=== PATIENT | female | born 1945 | race Caucasian/White ===

== ENCOUNTER 2017-03-09 13:36 | Emergency (ER) | payer MEDICARE, OTHER ==
[~2017-03-09 13:36] MED LIST: CLOP75 PO; FLUO-1 PO; LEVO.025 PO; LISI-363 PO; LYRI50CA2 PO; MEVA40TA6 PO; SERO100T PO
[2017-03-09 13:41] VITALS: BP 141/77; PULSE 99; RESP 20; TEMP 98; O2SAT 94
[2017-03-09] MEDS ORDERED: SERO100T PO (14:44)
[2017-03-09] MEDS ORDERED: VENTAER INH (14:44)
[2017-03-09] MEDS ORDERED: PLAV75TA29 PO (14:44)
[2017-03-09] MEDS ORDERED: FLUO20CA12 PO (14:44)
[2017-03-09] MEDS ORDERED: LOVA40TA PO (14:44)
[2017-03-09] MEDS ORDERED: GABA300C5 PO (14:44)
[2017-03-09] MEDS ORDERED: GLYC1AER INH (14:44)
[2017-03-09] MEDS ORDERED: LISI40TA PO (14:44)
--- NOTE | 2017-03-09 14:53 | PD ---
HPI Chief Complaint: Abdominal Pain Time Seen by Provider: 14:32 Travel History International Travel<30 days: No Contact w/Intl Traveler<30days: No Traveled to known affect area: No History of Present Illness HPI This 71-year-old female is complaining of nausea and lower abdominal pain. She' s been sick for about 2 days. She has a little bit nauseated 2 days ago. Yesterday she had explosive diarrhea throughout the day. She is having lower abdominal pain today and severe nausea. She has had a hysterectomy in the past. No other abdominal surgery. She is taken some Pepto-Bismol without relief. She has not had diarrhea today. She had a colonoscopy done a couple years ago she has had some polyps otherwise negative. The pain she is having is lower abdominal pain. It is crampy in nature. It is moderate in severity PFSH Past Medical History Arthritis: No Asthma: Yes Autoimmune Disease: No Blood Disorders: No Anxiety: Yes Depression: Yes Heart Rhythm Problems: No Cancer: No Cardiovascular Problems: Yes High Cholesterol: Yes Chemotherapy: No Chest Pain: No Congestive Heart Failure: No COPD: Yes Cerebrovascular Accident: Yes Diabetes: No Diminished Hearing: No Endocrine: No Gastrointestinal Disorders: Yes GERD: Yes Glaucoma: No Genitourinary: Yes Headaches: No Hepatitis: No Hiatal Hernia: Yes Hypertension: Yes Kidney Stones: No Musculoskeletal: No Neurologic: Yes (Temporal arteritis ) Psychiatric: Yes Reproductive: No Respiratory: Yes (Bronchitis ) Myocardial Infarction: No Radiation Therapy: No Renal Failure: No Seizures: No Shingles: Yes (w/ herpetic neuralgia ) Sickle Cell Disease: No Sleep Apnea: No Thyroid Disease: Yes Ulcer: No Tetanus Vaccination: Unknown Influenza Vaccination: Yes PNEUMOCCOCAL Vaccine (Year): 1 ?: Not Menopausal: Yes Past Surgical History Abdominal Surgery: No AICD: No Cardiac Surgery: No Cholecystectomy: Yes Ear Surgery: No Endocrine Surgery: No Eye Surgery: No Genitourinary Surgery: No Gynecologic Surgery: Yes (HYSTERECTOMY) Hysterectomy: Yes Oral Surgery: No Pacemaker: No Thoracic Surgery: No Other Surgery: Yes (Sinus X's 3) Social History Alcohol Use: No Tobacco Use: No Substance Use: No Allergies-Medications (Allergen,Severity, Reaction): Coded Allergies: Augmentin (Verified Allergy, Severe, 03/09/17) Phenobarbital (Verified Allergy, Severe, eyes swell, 03/09/17) Reported Meds & Prescriptions Reported Meds & Active Scripts Active Zofran Odt (Ondansetron Odt) 4 Mg Tab 4 Mg SL Q6HR PRN Reported Bevespi Aerosphere 9-4.8 Mcg/Act (Glycopyrrolate-Formoterol Fuma) 1 Aer Aer 2 Puff INH DIRECTED Ventolin Hfa 18 GM Inh (Albuterol Sulfate) 90 Mcg/Act Aer 2 Puff INH Q6H PRN Lisinopril 40 Mg Tab 40 Mg PO BID Seroquel (Quetiapine Fumarate) 100 Mg Tab 100 Mg PO HS Plavix (Clopidogrel Bisulfate) 75 Mg Tab 75 Mg PO DAILY Fluoxetine (Fluoxetine HCl) 20 Mg Capsule 20 Mg PO DAILY Gabapentin 300 Mg Cap 300 Mg PO DIRECTED Lovastatin 40 Mg Tab 40 Mg PO DAILY Review of Systems General / Constitutional: No: Fever, Chills Eyes: No: Diploplia HENT: No: Headaches, Vertigo Cardiovascular: No: Chest Pain or Discomfort, Palpitations Respiratory: No: Cough, Shortness of Breath Gastrointestinal: Positive: Nausea, Diarrhea, Abdominal Pain Genitourinary: No: Urgency, Frequency Musculoskeletal: No: Myalgias, Arthralgias Skin: No Rash, No Itching Neurologic: No: Weakness, Dizziness Physical Exam Narrative GENERAL: Well-developed female SKIN: Focused skin assessment warm/dry. HEAD: Atraumatic. Normocephalic. EYES: Pupils equal and round. No scleral icterus. No injection or drainage. ENT: No nasal bleeding or discharge. Mucous membranes pink and moist. NECK: Trachea midline. No JVD. CARDIOVASCULAR: Regular rate and rhythm. No murmur appreciated. RESPIRATORY: No accessory muscle use. Clear to auscultation. Breath sounds equal bilaterally. GASTROINTESTINAL: Abdomen soft, there is lower abdominal tenderness which seems greater on the right side, nondistended. Hepatic and splenic margins not palpable. MUSCULOSKELETAL: No obvious deformities. No clubbing. No cyanosis. No edema. NEUROLOGICAL: Awake and alert. No obvious cranial nerve deficits. Motor grossly within normal limits. Normal speech. PSYCHIATRIC: Appropriate mood and affect; insight and judgment normal. Data Data Last Documented VS Vital Signs Date Time Temp Pulse Resp B/P Pulse Ox O2 Delivery O2 Flow Rate FiO2 03/09/17 13:41 98.0 99 20 141/77 94 Orders Complete Blood Count With Diff (03/09/17 14:48) Comprehensive Metabolic Panel (03/09/17 14:48) Urinalysis - C+S If Indicated (03/09/17 14:48) Ct Abd/Pel W Iv Contrast(Rout) (03/09/17 14:48) Sodium Chlor 0.9% 1000 Ml Inj (Ns 1000 M (03/09/17 15:00) Ondansetron Inj (Zofran Inj) (03/09/17 15:00) Labs Laboratory Tests Test 03/09/17 03/09/17 15:00 15:08 Urine Color YELLOW Urine Turbidity CLEAR Urine pH 5.5 Urine Specific [place] 1.025 Urine Protein TRACE mg/dL Urine Glucose (UA) NEG mg/dL Urine Ketones TRACE mg/dL Urine Occult Blood NEG Urine Nitrite NEG Urine Bilirubin NEG Urine Leukocyte Esterase NEG Urine WBC 3-5 /hpf Urine Squamous Epithelial 0-5 /hpf Cells Urine Renal Epithelial Cells 0-5 /hpf Urine Amorphous Sediment FEW Urine Bacteria RARE /hpf Urine Hyaline Casts 20-24 /lpf Urine Mucus MOD /lpf Microscopic Urinalysis Comment CULT NOT INDICATED White Blood Count 8.6 TH/MM3 Red Blood Count 4.89 MIL/MM3 Hemoglobin 14.0 GM/DL Hematocrit 42.7 % Mean Corpuscular Volume 87.2 FL Mean Corpuscular Hemoglobin 28.7 PG Mean Corpuscular Hemoglobin 32.9 % Concent Red Cell Distribution Width 13.0 % Platelet Count 252 TH/MM3 Mean Platelet Volume 7.8 FL Neutrophils (%) (Auto) 81.9 % Lymphocytes (%) (Auto) 8.2 % Monocytes (%) (Auto) 8.3 % Eosinophils (%) (Auto) 1.4 % Basophils (%) (Auto) 0.2 % Neutrophils # (Auto) 7.1 TH/MM3 Lymphocytes # (Auto) 0.7 TH/MM3 Monocytes # (Auto) 0.7 TH/MM3 Eosinophils # (Auto) 0.1 TH/MM3 Basophils # (Auto) 0.0 TH/MM3 CBC Comment AUTO DIFF Sodium Level 139 MEQ/L Potassium Level 3.5 MEQ/L Chloride Level 103 MEQ/L Carbon Dioxide Level 25.9 MEQ/L Anion Gap 10 MEQ/L Blood Urea Nitrogen 20 MG/DL Creatinine 1.50 MG/DL Estimat Glomerular Filtration 34 ML/MIN Rate Random Glucose 109 MG/DL Calcium Level 8.3 MG/DL Total Bilirubin 1.0 MG/DL Aspartate Amino Transf 31 U/L (AST/SGOT) Alanine Aminotransferase 22 U/L (ALT/SGPT) Alkaline Phosphatase 68 U/L Total Protein 7.3 GM/DL Albumin 4.1 GM/DL [facility] Medical Decision Making Medical Screen Exam Complete: Yes Emergency Medical Condition: Yes Medical Record Reviewed: Yes Differential Diagnosis Differential includes enteritis, gastroenteritis, diverticulitis, appendicitis Narrative Course Hemoglobin is 14. White count is 8.6. Urine is 20 with creatinine of 1.5. A CT scan has been ordered to assess for possible diverticulitis or other etiology. She has been given some fluids and Zofran. Her nausea has responded very well to Zofran. CT pending at the time of my departure and will be checked by oncoming physician Diagnosis Primary Impression: Enteritis Scripts Ondansetron Odt (Zofran Odt)4 Mg Tab4 Mg SL Q6HR PRN (Nausea/Vomiting) #10 TAB Ref 0 Prov:Narayan Foster MD 03/09/17 Narayan Foster MD Mar 09, 2017 14:53
[2017-03-09] MEDS ORDERED: SODIUM CHLOR 0.9% 1000 ML INJ 1,000 ML IV ONE (15:00)
[2017-03-09] MEDS ORDERED: ONDANSETRON HCL 4 MG/2 ML VIAL IV PUSH ONE ×2 (15:00→17:00)
[2017-03-09 15:26] LABS: BLOOD, URINE NEG (NEG); GLUCOSE,URINE NEG (NEG); KETONE, URINE TRACE mg/dL (NEG); NITRITE,URINE NEG (NEG); PH, URINE 5.5 (5.0-8.5)
[2017-03-09 15:36] LABS: CHLORIDE 103 MEQ/L (98-107); POTASSIUM 3.5 MEQ/L (3.5-5.1); SODIUM (NA) 139 MEQ/L (136-145)
[2017-03-09 15:37] LABS: AUTOMATED NEUTROPHIL # 7.1 TH/MM3 (1.8-7.7); BASOPHIL % 0.2 % (0.0-2.0); EOSINOPHIL # 0.1 TH/MM3 (0-0.4); EOSINOPHIL % 1.4 % (0.0-4.0); HEMATOCRIT 42.7 % (35.0-46.0); LYMPH % 8.2 % (9.0-44.0); LYMPHOCYTE # 0.7 TH/MM3 (1.0-4.8); MEAN CELL VOLUME 87.2 FL (80.0-100.0); MEAN CORPUSCULAR HEMOGLOBIN 28.7 PG (27.0-34.0); MEAN CORPUSCULAR HGB CONC 32.9 % (32.0-36.0); MONO % 8.3 % (0.0-8.0); NEUT % 81.9 % (16.0-70.0); PLATELET COUNT 252 TH/MM3 (150-450); RED BLOOD COUNT 4.89 MIL/MM3 (4.00-5.30); WHITE BLOOD COUNT 8.6 TH/MM3 (4.0-11.0)
[2017-03-09 15:41] LABS: ANION GAP 10 MEQ/L (5-15); BICARBONATE 25.9 MEQ/L (21.0-32.0); BLOOD UREA NITROGEN 20 MG/DL (7-18)
[2017-03-09 15:41] LABS: URINE COLOR YELLOW (YELLW/STRAW)
[2017-03-09 15:42] LABS: MUCUS URINE MOD /lpf (OCC)
[2017-03-09 15:43] LABS: RENAL EPITHELIAL CELLS 0-5 /hpf; SQUAMOUS EPITHELIAL CELL URINE 0-5 /hpf (0-5)
[2017-03-09 15:44] LABS: ALT (GPT) 22 U/L (10-53); AST (GOT) 31 U/L (15-37); GLOMERULAR FILTRATION RATE 34 ML/MIN (>89)
[2017-03-09 15:44] LABS: BACTERIA, URINE RARE /hpf; COMMENT (UR) CULT NOT INDICATED; CULTURE IF INDICATED CULT NOT INDICATED
[2017-03-09 15:45] LABS: HEMO FLAGS AUTO DIFF
[2017-03-09 15:47] LABS: ALKALINE PHOSPHATASE 68 U/L (45-117)
[2017-03-09] MEDS ORDERED: ZOFR4TAB3 SL (15:58)
[2017-03-09] MEDS ORDERED: IODIXANOL 320 MG/ML 10 ML VIAL (for Rad CT) IV ONE (16:05)
--- NOTE | 2017-03-09 16:22 | RADRPT ---
EXAM DATE/TIME: 03/09/2017 15:51 [place] COMPARISON: No previous studies available for comparison. INDICATIONS : Abdominal pain and diarrhea. IV CONTRAST: 50 cc Visipaque (iodixanol) IV ORAL CONTRAST: No oral contrast ingested. RADIATION DOSE: 10.13 CTDIvol (mGy) MEDICAL HISTORY : Hernia, hiatal. Chronic obstructive pulmonary disease. Hypertension. SURGICAL HISTORY : Cholecystectomy. Hysterectomy. ENCOUNTER: Initial ACUITY: 3 days PAIN SCALE: 2/10 LOCATION: abdomen TECHNIQUE: Volumetric scanning of the abdomen and pelvis was performed. Using automated exposure control and ad justment of the mA and/or kV according to patient size, radiation dose was kept as low as reasonably achievable to obtain optimal diagnostic quality images. DICOM format image data is available electro nically for review and comparison. FINDINGS: LOWER LUNGS: The visualized lower lungs are clear. LIVER: Homogeneous density without lesion. There is no dilation of the biliary tree. No calcified gallston es. SPLEEN: Normal size without lesion. 3 small soft tissue nodules in the left upper abdomen likely splenules PANCREAS: 1 cm hypodensity within the neck of the pancreas and 5 mm nodule superior to the pancreas could be sm all pseudocysts. KIDNEYS: Normal in size and shape. There is no mass, stone or hydronephrosis. ADRENAL GLANDS: Within normal limits. VASCULAR: There is no aortic aneurysm. BOWEL/MESENTERY: The stomach, small bowel, and colon demonstrate no acute abnormality. There is no free intraperitone al air or fluid. ABDOMINAL WALL: Within normal limits. RETROPERITONEUM: There is no lymphadenopathy. BLADDER: No wall thickening or mass. REPRODUCTIVE: Within normal limits. INGUINAL: There is no lymphadenopathy or hernia. MUSCULOSKELETAL: Within normal limits for patient age. CONCLUSION: Normal examination. 3 small splenule is in the left upper abdomen. 1 cm hypodensity within the neck of the pancreas and 5 mm nodule superior to the pancreas could be small pseudocysts. Followup CT scan in one year is recommended with contrast. Jesús Ferguson MD on March 09, 2017 at 16:18 Board Certified Radiologist. This report was verified electronically.
[2017-03-09 16:25] LABS: PLATELET ESTIMATE SMEAR NORMAL (NORMAL); PLATELET MORPHOLOGY NORMAL (NORMAL); SCAN/DIFF AUTO DIFF CONFIRMED
--- NOTE | 2017-03-09 16:55 | PD ---
Physical Exam Date Seen by Provider: Mar 09, 2017 Narrative Care was assumed from Dr. Goodman at [address] of the abdomen and pelvis. The patient presented with vomiting and diarrhea. The patient is much improved following Zofran. Data Data Last Documented VS Vital Signs Date Time Temp Pulse Resp B/P Pulse Ox O2 Delivery O2 Flow Rate FiO2 03/09/17 13:41 98.0 99 20 141/77 94 Orders Complete Blood Count With Diff (03/09/17 14:48) Comprehensive Metabolic Panel (03/09/17 14:48) Urinalysis - C+S If Indicated (03/09/17 14:48) Ct Abd/Pel W Iv Contrast(Rout) (03/09/17 14:48) Sodium Chlor 0.9% 1000 Ml Inj (Ns 1000 M (03/09/17 15:00) Ondansetron Inj (Zofran Inj) (03/09/17 15:00) Iodixanol 320 Inj (Rad Ct) (Visipaque 32 (03/09/17 16:05) Labs Laboratory Tests Test 03/09/17 03/09/17 15:00 15:08 Urine Color YELLOW Urine Turbidity CLEAR Urine pH 5.5 Urine Specific [place] 1.025 Urine Protein TRACE mg/dL Urine Glucose (UA) NEG mg/dL Urine Ketones TRACE mg/dL Urine Occult Blood NEG Urine Nitrite NEG Urine Bilirubin NEG Urine Leukocyte Esterase NEG Urine WBC 3-5 /hpf Urine Squamous Epithelial 0-5 /hpf Cells Urine Renal Epithelial Cells 0-5 /hpf Urine Amorphous Sediment FEW Urine Bacteria RARE /hpf Urine Hyaline Casts 20-24 /lpf Urine Mucus MOD /lpf Microscopic Urinalysis Comment CULT NOT INDICATED White Blood Count 8.6 TH/MM3 Red Blood Count 4.89 MIL/MM3 Hemoglobin 14.0 GM/DL Hematocrit 42.7 % Mean Corpuscular Volume 87.2 FL Mean Corpuscular Hemoglobin 28.7 PG Mean Corpuscular Hemoglobin 32.9 % Concent Red Cell Distribution Width 13.0 % Platelet Count 252 TH/MM3 Mean Platelet Volume 7.8 FL Neutrophils (%) (Auto) 81.9 % Lymphocytes (%) (Auto) 8.2 % Monocytes (%) (Auto) 8.3 % Eosinophils (%) (Auto) 1.4 % Basophils (%) (Auto) 0.2 % Neutrophils # (Auto) 7.1 TH/MM3 Lymphocytes # (Auto) 0.7 TH/MM3 Monocytes # (Auto) 0.7 TH/MM3 Eosinophils # (Auto) 0.1 TH/MM3 Basophils # (Auto) 0.0 TH/MM3 CBC Comment AUTO DIFF Differential Comment AUTO DIFF CONFIRMED Platelet Estimate NORMAL Platelet Morphology Comment NORMAL Sodium Level 139 MEQ/L Potassium Level 3.5 MEQ/L Chloride Level 103 MEQ/L Carbon Dioxide Level 25.9 MEQ/L Anion Gap 10 MEQ/L Blood Urea Nitrogen 20 MG/DL Creatinine 1.50 MG/DL Estimat Glomerular Filtration 34 ML/MIN Rate Random Glucose 109 MG/DL Calcium Level 8.3 MG/DL Total Bilirubin 1.0 MG/DL Aspartate Amino Transf 31 U/L (AST/SGOT) Alanine Aminotransferase 22 U/L (ALT/SGPT) Alkaline Phosphatase 68 U/L Total Protein 7.3 GM/DL Albumin 4.1 GM/DL MDM Supervised Visit with LILA: No Narrative Course Last Impressions Abdomen/Pelvis CT 03/09/17 1448 Signed Impressions: Service Date/Time: Thursday, March 09, 2017 15:51 - CONCLUSION: Normal examination. 3 small splenule is in the left upper abdomen. 1 cm hypodensity within the neck of the pancreas and 5 mm nodule superior to the pancreas could be small pseudocysts. Followup CT scan in one year is recommended with contrast. Jesús Ferguson MD The patient will be discharged with a prescription for Zofran. Diagnosis Primary Impression: Enteritis Patient Instructions: Enteritis (DC), General Instructions Scripts Ondansetron Odt (Zofran Odt)4 Mg Tab4 Mg SL Q6HR PRN (Nausea/Vomiting) #10 TAB Ref 0 Prov:Narayan Foster MD 03/09/17 Disposition: 01 DISCHARGE HOME Condition: Stable Brittany Fofana MD Mar 09, 2017 16:55
[2017-03-09 17:15] VITALS: BP 147/75; PULSE 90; RESP 16; O2SAT 100
== END 2017-03-09 17:15 | disposition home or self-care (01) ==
LOC: PHED 13:36
DX: K52.9 Noninfective gastroenteritis and colitis, unspecified (principal); I10 Essential (primary) hypertension; E78.00 Pure hypercholesterolemia, unspecified; J44.9 Chronic obstructive pulmonary disease, unspecified; K21.9 Gastro-esophageal reflux disease without esophagitis
CPT/HCPCS: 74177; 80053; 81001; 85025; 96361; 96374; 96376; 99285; J2405; J7030; Q9967